=== PATIENT | male | born 1940 | race Caucasian/White ===

== ENCOUNTER 2018-06-04 10:31 | Inpatient (IN) ==
--- NOTE | 2018-06-04 10:29 | Anesthesia Evaluation PreOp ---
Date of Encounter: 06/04/18 Time of Encounter: 11:14 - Past History Planned Operation: RIGHT CEA Cardiac History: CHF (HISTORY), HTN, Hyperlipidemia, Cardiac Stent (X1 ? 2005 OR 2006), Other (EXCELLENT EXCERCISE TOLERANCE, 1 HOUR WORKOUT IN THE GYM 5 DAYS /WEEK) Pulmonary History: Former smoker, COPD (MILD), ANGELA Dx (SUSPECTED, SCHEDULED FOR SLEEP STUDY), Other (ADMISSION IN MARCH FOR SOB, PNEUMONIA, NO SYMPTOMS SINCE DISCHARGE) SOFTWARE SUPPORT REPRESENTATIVE History: Denies Any Significant HX Other Medical History: Renal (BPH), Diabetes Type II Anesthesia History: No Prior Anesthetic Complications, Past Anesthesia Alcohol Use: heavy Drug use: none Medications and Allergies Aspirin Enteric Coated [Aspirin EC] 81 mg PO DAILY 04/11/16 [History] Lisinopril [Zestril] 10 mg PO DAILY 04/11/16 [History] Metoprolol [Lopressor] 50 mg PO BID 04/11/16 [History] Simvastatin [Zocor] 10 mg PO HS 04/11/16 [History] metFORMIN [Glucophage] 500 mg PO DAILY 04/11/16 [History] Cholecalciferol (D-3) [Vitamin D] 1,000 mg DAILY 06/04/18 [History] 3 Allergy/AdvReac Type Severity Reaction Status Date / Time No Known Allergies Allergy Unverified 02/21/16 08:06 - Meds/Allergy Pre-op Review Medications Reviewed: Yes Allergies Reviewed: Yes Beta Blockers on Current Med List: Yes If Beta Blockers taken, Date/Time (Last Dose taken): 0600, PATIENT ALSO TOOK HIS AM DOSE OF METFORMIN Anesthesia Results - Labs Laboratory Last Values WBC 8.6 K/mcL (4.3-11.1) 06/03/18 10:20 RBC 4.39 M/mcL (4.19-5.50) 06/03/18 10:20 Hgb 14.2 g/dL (12.9-16.9) 06/03/18 10:20 Hct 42.7 % (37.5-50.1) 06/03/18 10:20 MCV 97.3 fL (83.0-100.0) 06/03/18 10:20 MCH 32.3 pg (28.0-33.3) 06/03/18 10:20 MCHC 33.3 g/dL (31.6-35.5) 06/03/18 10:20 RDW 12.8 % (11.5-14.5) 06/03/18 10:20 Plt Count 319 K/mcL (140-400) 06/03/18 10:20 MPV 10.0 fL (9.4-12.4) 06/03/18 10:20 Immature Gran % 0.3 % (0-4) 06/03/18 10:20 Seg Neutrophils % 65.5 % 06/03/18 10:20 Lymphocytes % 17.3 % 06/03/18 10:20 Monocytes % 6.8 % 06/03/18 10:20 Eosinophils % 9.2 % 06/03/18 10:20 Basophils % 0.9 % 06/03/18 10:20 Neutrophils # 5.6 K/mcL (1.6-8.9) 06/03/18 10:20 Lymphocytes # 1.5 K/mcL (0.6-4.6) 06/03/18 10:20 Monocytes # 0.6 K/mcL (0.0-1.3) 06/03/18 10:20 Eosinophils # 0.8 K/mcL (0.0-0.6) H 06/03/18 10:20 Basophils # 0.1 K/mcL (0.0-0.2) 06/03/18 10:20 PT 11.2 Seconds (9.4-12.1) 06/03/18 10:20 INR 1.0 06/03/18 10:20 APTT 30.8 Seconds (26.0-36.0) 06/03/18 10:20 Sodium 137 mEq/L (136-145) 06/03/18 10:20 Potassium 4.9 mEq/L (3.5-5.1) 06/03/18 10:20 Chloride 101 mEq/L (98-107) 06/03/18 10:20 Carbon Dioxide 30 mEq/L (23-29) H 06/03/18 10:20 BUN 10 mg/dL (8-23) 06/03/18 10:20 Creatinine 0.84 mg/dL (0.70-1.30) 06/03/18 10:20 Est GFR ( Amer) > 60 (> 60) 06/03/18 10:20 Est GFR (Non-Af Amer) > 60 (> 60) 06/03/18 10:20 BUN/Creatinine Ratio 12 (6-26) 06/03/18 10:20 Glucose 117 mg/dL (70-105) H 06/03/18 10:20 Est Mean Plasma Glucose 143 mg/dl 06/03/18 10:20 Hemoglobin A1c 6.6 % (-5.6) H 06/03/18 10:20 Calculated Osmolality 284 (280-300) 06/03/18 10:20 Calcium 9.0 mg/dL (8.6-10.3) 06/03/18 10:20 Blood Type A POSITIVE 06/03/18 10:20 Antibody Screen NEGATIVE 06/03/18 10:20 - Imaging EKG: report reviewed (SINUS RHYTHM) Additional studies: CAROTID DUPLEX 05/16/2018: OSMIN 70-99% STENOSIS LICA 50-69% STENOSIS CECI VA ANTEGRADE FLOW Anesthesia Exam O2 Sat Height 1.73 m Height 1.73 m Weight 87.997 kg Weight 87.997 kg BMI 30 Vital Signs/O2 Sat/Glucose, Most Recent Temp Pulse Resp BP Pulse Ox 98.2 F 82 18 137/73 96 06/04/18 10:56 06/04/18 10:56 06/04/18 10:56 06/04/18 10:56 06/04/18 10:56 Blood Glucose* 130 NPO (# of Hours): 8 - HEENT Mallampati: I Teeth: Missing Denture Type: Upper: Complete Oral Opening: Greater than 3 - SOFTWARE SUPPORT REPRESENTATIVE LOC: Oriented (AA Ox3) SOFTWARE SUPPORT REPRESENTATIVE Motor: Normal RUE, Normal LUE, Normal RLE, Normal LLE, Normal Face - Cardiac Rhythm: Regular - Pulmonary Breath Sounds: bilateral Clear Respiratory Effort: Symmetrical Anesthesia Assess/Plan ASA Score: 3 Modified [place] Scale for Level of Consciousness: Cooperative, oriented, and tranquil Anesthetic Plan: General Monitoring Plan: Standard Monitors, A-Line Recovery Plan: PACU Anes Supervising Prov Stmt: [employer] LIST NOT UPDATED THIS VISIT PATIENT'S CHART AND CURRENT MEDICATIONS REVIEWED Taking Lisinopril 20 MG Tablet, Si.5 tablet Orally Once a day Taking Simvastatin 20 MG Tablet, Si.5 tablet in the evening Orally Once a day Taking Metformin HCl 1000 MG Tablet, Si.5 tablet with meals Orally Twice a day Taking Metoprolol Tartrate 50 MG Tablet, Si tablet with food Orally Twice a day Taking Aspir-81 81 MG Tablet Delayed Release, Si tablet Orally Once a day Patient informed and consented. Risks, benefits, and alternatives discussed. Patient wishes to proceed. Patient understands that he is at increased risk for perioperative complications including myocardial infarct, arrhythmias, and CVA.
[~2018-06-04 10:31] MED LIST: Vancomycin 1,000 MG, Sodium Chloride IRRigation 1,000 ML IR ONE
[2018-06-04] MEDS ORDERED: *HR* Propofol 200 MG/20 ML VIAL IVP ONE (10:46)
[2018-06-04] MEDS ORDERED: *HR* FentaNYL (PF) 100 MCG/2 ML VIAL ONE (10:46)
[2018-06-04] MEDS ORDERED: Lidocaine -MPF 2% 2 ML VIAL ONE (10:47)
[2018-06-04] MEDS ORDERED: *HR* Rocuronium Bromide 50 MG/5 ML VIAL ONE ×2 (10:47→14:28)
[2018-06-04] MEDS ORDERED: Dexamethasone 4 MG/ML VIAL ONE (10:47)
[2018-06-04] MEDS ORDERED: Ondansetron 4 MG/2 ML VIAL ONE ×2 (10:47→22:05)
[2018-06-04] MEDS ORDERED: Heparin 1,000 UNITS/500 mL 500 ML ONE (11:56)
[2018-06-04] MEDS ORDERED: CeFAZolin Syr 2,000MG/20 ML 2,000 MG/20 ML SYRINGE IVPB ONE (11:56)
[2018-06-04] MEDS ORDERED: Ringers Solution, Lactated 1,000 ML IVC SCH (12:00)
--- NOTE | 2018-06-04 12:21 | History & Physical Report ---
Date of Encounter: 06/04/18 Time of Encounter: 11:55 24 Hour HP Update - Instructions Instructions: If the History and Physical is less than 30 days old and was completed prior to A.M. admission and or procedure and has NOT been updated on calendar day of procedure please complete this update prior to performing procedure. - Update Patient reports changes in Medical Condition: No Changes in examination, assessment, or condition: No Changes in Medication: No Preop tests/diagnostics Reviewed: Yes Surgery Remains Indicated: Yes Consent for Planned Operative Procedure(s) Verified: Yes - Pre-Operative Checklist Preoperative Checklist Indicated: Yes Prophylactic Antibiotic Ordered: Yes (Vancomycin due to risk of MRSA) Home Medications Include Beta Kim: Yes Beta Kim Taken Today (Day of Surgery): Yes Beta Kim Taken Yesterday (Day Prior to Surgery): Yes Is VTE Prophylaxis Indicated?: Yes
[2018-06-04] MEDS ORDERED: *HR* Remifentanil 2 MG VIAL IVP ONE (12:33)
[2018-06-04] MEDS ORDERED: Heparin 1,000 UNITS/500 mL 1,000 ML ONE (12:41)
[2018-06-04] MEDS ORDERED: Protamine Sulfate 50 MG/5 ML VIAL IVP ONE (12:42)
[2018-06-04] MEDS ORDERED: Bupivacaine-MPF 0.25% 10 ML VIAL ONE (12:42)
[2018-06-04] MEDS ORDERED: Lidocaine 1% 20 ML MDV ONE (12:43)
[2018-06-04] MEDS ORDERED: *HR* Nitroprusside 50 MG VIAL IVC ONE (12:44)
[2018-06-04] MEDS ORDERED: *HR* PHENYLEPHRINE 1,000 MCG/10 ML SYRINGE IVP ONE (13:15)
[2018-06-04] MEDS ORDERED: EPHEDrine 50 MG/ML VIAL ONE (13:34)
[2018-06-04] MEDS ORDERED: *HR* Promethazine 25 MG/ML VIAL IVP PRN (14:21)
[2018-06-04] MEDS ORDERED: MORPHINE SUL Oral CONC 10 MG/0.5 ML ORAL.SYG SL PRN (14:21)
[2018-06-04] MEDS ORDERED: *HR* Labetalol 20 MG/4 ML SYRINGE IVP PRN ×2 (14:21→16:54)
[2018-06-04] MEDS ORDERED: Ondansetron 4 MG/2 ML VIAL IVP ONE (14:21)
[2018-06-04] MEDS ORDERED: Albuterol 2.5 MG/3 ML NEBULIZER IH ONE (14:21)
[2018-06-04] MEDS ORDERED: *HR* HYDROmorphone 2 MG TABLET PO PRN (14:21)
[2018-06-04] MEDS ORDERED: *HR* Heparin 5,000 UNIT/ML VIAL ONE (14:29)
[2018-06-04] MEDS ORDERED: *HR* Labetalol 100 MG/20 ML MDV ONE (15:34)
[2018-06-04] MEDS ORDERED: Neostigmine Methylsulfate 3 MG/3 ML SYRINGE ONE (15:57)
--- NOTE | 2018-06-04 16:09 | Operative Note ---
Date of procedure: 06/04/18 Pre-op diagnosis: Symptomatic 70-99% Right Internal Carotid Artery Stenosis Post-op diagnosis: same Procedure: Right Carotid Endarterectomy with hemashield angioplasty Complications: None Anesthesia: GETA Surgeon: Colt Washington Was there an animal care assistant present: No Estimated blood loss (cc): 50 Specimen: Right carotid plaque Condition: stable Disposition: PACU Procedure in Detail: Indications: The patient is a 78-year-old male with a history of amaurosis fugax involving the right eye. He is found have a 70-95% right internal carotid artery stenosis. A carotid endarterectomy was recommended to reduce his risk of cerebrovascular accident. Procedure: The patient was identified in the preoperative area. The risks, benefits, and alternatives of the procedure were discussed and all questions were answered. The patient was then taken to the operating room and placed in supine position on the operating table. After the induction of general endotracheal anesthesia, the patient was cleaned and draped in normal sterile fashion. A longitudinal incision was made anterior to the right sternocleidomastoid muscle. Hemostasis was obtained via electrocautery. Through a process of blunt , sharp, and electrocautery dissection, the platysma was traversed and the jugular vein was identified. The facial vein was dissected, clamped, divided and ligated with a 2-0 silk suture ligature. The jugular vein was retracted to expose the carotid bifurcation. The patient received 3000 units of heparin intravenously during this dissection. Proximal dissection of the common and external carotid arteries was then performed circumferentially. Dissection of the internal carotid was performed circumferentially as well. Vessels loops were passed around the internal and external carotid and an umbilical tape was passed from the common carotid artery. The patient received an additional 2000 units of heparin intravenously. After waiting adequate time for the heparin to circulate, the vessels were occluded and a longitudinal arteriotomy was made into the common carotid artery and extended into the internal carotid beyond the plaque. The plaque was long, extended distally and was heavily calcified. Vigorous pulsatile retrograde flow was noted from the internal carotid artery upon release of the vessel loop. Due to the rapid pulsatile retrograde flow, no shunt was placed. A dental [place] was then used to perform a standard endarterectomy. Proximal and distal endpoints were inspected. No elevated flaps were noted. A Hemashield patch was cut to fit the defect and sutured in place with running 6 -0 Prolene. Prior to completing the closure, each vessel was flushed and then reoccluded. Heparinized saline was infused into the lumen. The patch was completed. Flow was restored in the external carotid artery, followed the common carotid artery, lastly the internal carotid artery was opened. A low resistance arterialized signal was present within the internal carotid artery beyond the patch. Thrombin and Gelfoam were then used to aid in hemostasis. Meticulous hemostasis was obtained throughout the wound with electrocautery. Platelet rich and platelet poor plasma were infused into the wounds. The sternocleidomastoid was reapproximated with interrupted 3-0 Vicryl. Platelet rich and platelet poor plasma were infused into the wound. A TLS drain was brought through a separate stab incision and sutured in place with 0 silk suture. The platysma was reapproximated with running 3-0 Vicryl. Local anesthetic was infused in the skin. A 3-0 Monocryl was used to reapproximate the skin. A sterile dressing was applied. The patient was extubated, taken to the recovery room in stable condition.
--- NOTE | 2018-06-04 16:23 | Anesthesia Evaluation Post Op ---
Date of Encounter: 06/04/18 Time of Encounter: 16:40 - Vital Signs Vital Signs: Selected Entries 06/04/18 16:54 Temperature 97.4 F L Pulse Rate 67 Respiratory Rate 18 Blood Pressure 128/68 - Lungs Lungs: Clear Ascult./Percussion - Airway Airway: Non-obstructed - Cardiovascular Regular Rate - Mental Status Mental Status: Alert & Oriented, Answers Appropriately - Nausea Vomiting Nausea Vomiting: Not Present - Hydration Hydration: Ice chips - Discharge PostOp Status: Transfer Patient to floor
[2018-06-04] MEDS ORDERED: *HR* OxyCODONE Immed Rel 5 MG TABLET PO PRN (16:54)
[2018-06-04] MEDS ORDERED: Naloxone 0.4 MG/ML INJ IVP PRN (16:54)
[2018-06-04] MEDS ORDERED: OXYCODONE Oral CONC 10 MG/0.5 ML ORAL.SYG SL PRN ×2 (16:54)
[2018-06-04] MEDS ORDERED: Ondansetron 4 MG/2 ML VIAL IVP PRN (16:54)
[2018-06-04] MEDS ORDERED: 0.9 % Sodium Chloride 1,000 ML IVC SCH (16:54)
[2018-06-04] MEDS ORDERED: *HR* HYDROcodone/Acet 5/325 mg TABLET PO PRN (16:54)
[2018-06-04] MEDS ORDERED: Acetaminophen 325 MG TABLET PO PRN (16:54)
[2018-06-04] MEDS: *HR* Metoprolol 5 MG/5 ML VIAL IVP SCH ×2 (22:37→23:39)
[2018-06-05 03:43] VITALS: BP 98/76
[2018-06-05] MEDS ORDERED: *HR* Heparin 5,000 UNIT/ML VIAL SQ SCH ×2 (06:00)
--- NOTE | 2018-06-05 06:44 | Discharge Summary ---
Date of Encounter: 06/05/18 Time of Encounter: 07:35 - Discharge Diagnosis (1) Carotid stenosis, bilateral Priority: Primary Status: Chronic Comments: The patient is postoperative day #1 after a right carotid endarterectomy. His incision is healing well. He has no neurologic deficits. He will be discharged today. (2) Essential hypertension Priority: Secondary Status: Chronic (3) Mixed hyperlipidemia Priority: Secondary Status: Chronic (4) Diabetes mellitus Priority: Secondary Status: Chronic Qualifiers: Diabetes mellitus type: type 2 Diabetes mellitus joint terminal attack controller insulin use: without skilled nursing use Diabetes mellitus complication status: with circulatory complication Diabetes mellitus complication detail: with other circulatory complications Qualified Code(s): E11.59 - Type 2 diabetes mellitus with other circulatory complications (5) Coronary artery disease Priority: Secondary Status: Chronic Qualifiers: Coronary Disease-Associated Artery/Lesion type: [place] artery [place] vs. transplanted heart: [place] heart Associated angina: without angina Qualified Code(s): I25.10 - Atherosclerotic heart disease of [place] coronary artery without angina pectoris - Hospital Course Hospital course: Mr. Arshad is a 78 year old male with a history of diabetes, hypertension, hyperlipidemia and coronary artery disease. The patient was found have significant carotid stenosis. He was admitted to [facility] on 06/04/2018. He underwent a right carotid endarterectomy. He tolerated the procedure well. On postoperative day #1 without complaints and was healing well. He was discharged home in stable condition without complications. - Time Spent with Patient Total time spent providing and/or coordinating discharge services: - Discharge Medications Prescriptions: HYDROcodone/Acet 5/325 mg [[place] 5-325 mg] 1 tab PO Q6HR PRN 4 Days #16 tablet PRN Reason: Postoperative pain Home Medications: Aspirin Enteric Coated [Aspirin EC] 81 mg PO DAILY 04/11/16 [History] Metoprolol [Lopressor] 50 mg PO BID 04/11/16 [History] Simvastatin [Zocor] 10 mg PO HS 04/11/16 [History] Cholecalciferol (D-3) [Vitamin D] 2,000 mg PO DAILY 06/04/18 [History] Ergocalciferol (VITAMIN D2) [Vitamin D2] 50,000 unit PO QWEEK 06/04/18 [History] Lisinopril [Zestril] 10 mg PO DAILY 06/04/18 [History] Metformin HCl [Metformin HCl ER] 500 mg PO BID 06/04/18 [History] HYDROcodone/Acet 5/325 mg [[place] 5-325 mg] 1 tab PO Q6HR PRN 4 Days #16 tablet 06/05/18 [Rx] Allergies/Adverse Reactions: 3 Allergy/AdvReac Type Severity Reaction Status Date / Time No Known Allergies Allergy Verified 06/04/18 21:35 Date of admission: 06/04/18 16:52 Primary care physician: PCP [facility] Procedure(s) Performed: Right carotid endarterectomy Discharging clinician: Colt Washington Anticipated date of discharge: 06/05/18 Exam Vital Signs, Last 4 Hours Temp Pulse Resp BP Pulse Ox 06/05/18 03:41 97.9 F 63 18 98/76 90 General: Present: Conversant, No Apparent Distress HEENT: Present: Pupils equal Neck: Present: Other (Incision clean, dry and intact without erythema or drainage, no hematoma) Cardiac: Present: Reg Rate and Rhythm Lungs: Present: Normal Breath Sounds Neuro: Present: Alert and responsive, No focal deficits noted, Motor nerves grossly intact, Sensory nerves grossly intact Abdomen: Present: Soft Vascular: Absent: Cyanosis, Edema Skin: Present: No rashes noted on visualized skin - Patient Status Disposition: Home, Self-Care Condition: Good Functional capacity at discharge: independent ambulation Overall status at discharge: patient is back to baseline - Discharge Instructions Instructions: Peripheral Vascular Disorders (DC), Chronic Hypertension (DC) Follow Up With: Colt Washington MD [Partnered Physician] - 07/07/18 1:00 pm [facility],PCP [Primary Care Provider] - 06/16/18 1:30 pm Additional Instructions: May remove bandage and shower on 06/06/18. Wash wound gently and pat to dry. No driving for [address] Washington at [phone] with questions or concerns. - Diet and Activity Activity: increase activity as tolerated Diet: diabetic diet
[2018-06-05] MEDS ORDERED: *HR* Metformin 500 MG TABLET PO SCH (08:00)
[2018-06-05] MEDS ORDERED: Aspirin Enteric Coated 81 MG Tablet PO SCH (09:00)
== END 2018-06-05 09:30 | disposition home or self-care (01) | DRG 39 ==
LOC: SAMDAY 10:31 → 2NNU 16:52
PROVIDERS: ADMIT Surgery; ATTEND Surgery